=== PATIENT | female | born 1980 | race African-American/Black ===

== ENCOUNTER 2018-08-15 11:40 | Emergency (ER) | payer OTHER ==
[~2018-08-15] VITALS: Ht 165.1 cm; Wt 89.8 kg
[2018-08-15] MEDS ORDERED: NAPROXEN375 MG PO (13:10)
[2018-08-15] MEDS ORDERED: PREDNISONE 20 M20 MG PO (13:10)
[2018-08-15 13:30] VITALS: BP 149/100
--- NOTE | 2018-08-15 15:27 | EKG ---
[place] [address] [facility] [employer] [address] ELECTROCARDIOGRAM REPORT Name: SHARONDAJACY Room #: DEP [place]#: [id number] Admission: 08/15/18 Attend Phys: Discharge: 08/15/18 Date of : 80 Report #: [id number] THIS REPORT FOR: //name// [facility] ED Test Date: 2018-08-15 Test Time: 11:55:54 Pat Name: JACY MCDONOUGH Department: Room: Gender: F Bilingual Speech Therapist: FOREST : 1980 Requested By: Abraham Farias Order Number: [id number] MD: Guy Jenkins Measurements Intervals [place] Rate: 70 P: -3 CA: 116 QRS: -5 QRSD: 96 T: 60 QT: 411 QTc: 444 Interpretive Statements Sinus rhythm Borderline short CA interval RSR' in V1 or V2, right VCD or RVH ST elev, probable normal early repol pattern No previous ECG available for comparison Electronically Signed On 08-15-2018 15:27:05 [employer] PH[employer]ICIST by Guy Jenkins [email or web address] <ELECTRONICALLY SIGNED> By: Guy Jenkins MD 08/15/18 1527 [id number] [id number] Guy Jenkins MD /MAY
== END 2018-08-15 13:30 | disposition home or self-care (01) ==
LOC: ER 11:40
DX: R07.89 Other chest pain (principal); E66.9 Obesity, unspecified; Z68.32 Body mass index [BMI] 32.0-32.9, adult; Z87.891 Personal history of nicotine dependence